=== PATIENT | male | born 1965 | race Caucasian/White ===

== ENCOUNTER 2020-06-04 11:16 | Emergency (ER) | payer SELFPAY ==
--- NOTE | 2020-06-04 11:18 | EDM.PDOC ---
ED HPI GENERAL MEDICAL PROBLEM - General Chief Complaint: Skin Complaint Stated Complaint: SKIN IRRITATION/RASH ON CHEST Time Seen by Provider: 06/04/20 11:18 Source of Information: Reports: Patient History Limitations: Reports: No Limitations - History of Present Illness INITIAL COMMENTS - FREE TEXT/NARRATIVE: 54-year-old male relevant past medical history presents for rash. Patient has noted rash for approximately 4 months. He notes that he has been to the clinic in [place] multiple times and has been given prednisone as well as Decadron which both seem to temporarily relieve the symptoms but then they come back worse. He notes that the rash seems to be spreading initially on his face and then down his arms and onto his torso and back. He notes that he was also trialed on permethrin cream x5 without relief of symptoms. He denies any fevers or other systemic symptoms. The rash is mildly itchy. Somewhat burning in sensation. ED ROS GENERAL - Review of Systems Review Of Systems: Comprehensive ROS is negative, except as noted in HPI. ED EXAM, SKIN/RASH Exam: See Below Exam Limited By: No Limitations General Appearance: Alert, WD/WN, No Apparent Distress Throat/Mouth: Normal Voice, No Airway Compromise Head: Atraumatic, Normocephalic Neck: Normal Inspection Respiratory/Chest: No Respiratory Distress, No Accessory Muscle Use Cardiovascular: Normal Peripheral Pulses Extremities: Normal Inspection Neurological: Alert Psychiatric: Normal Affect, Normal Mood Skin: Warm, Dry, Intact, Other (erythematous raised rash diffuse UE, abdomen, torso, face, blanching) Course - Re-Assessments/Exams Free Text/Narrative Re-Assessment/Exam: 06/04/20 11:42 Patient presents with rash of unclear etiology. This is been going on since February of last year. He has tried steroids on and off which helped for a while but then the rash recurs. I explained to patient that unfortunately in the emergency department we did always come up with a clear diagnosis particularly for rashes. Advised him to follow-up with dermatology and provided information for our local marine steam fitter. Will give Decadron now for symptomatic relief. Return precautions discussed. Departure - Departure Time of Disposition: 11:43 Disposition: Home, Self-Care 01 Condition: Good Clinical Impression: Pruritic rash - Discharge Information Instructions: Rash, Adult Forms: ED Department Discharge Additional Instructions: You need to follow-up with a specialist. Information is provided below for our local marine steam fitter. Donaldo Zabala MD Dermatology [facility] Building [address] [place] [address], [facility] [address] [facility] [id number] The following information is given to patients seen in the emergency department who are being discharged to home. This information is to outline your options for follow-up care. We provide all patients seen in our emergency department with a follow-up referral. The need for follow-up, as well as the timing and circumstances, are variable depending upon the specifics of your emergency department visit. If you don't have a primary care physician on staff, we will provide you with a referral. We always advise you to contact your personal physician following an emergency department visit to inform them of the circumstance of the visit and for follow-up with them and/or the need for any referrals to a consulting specialist. The emergency department will also refer you to a specialist when appropriate. This referral assures that you have the opportunity for follow-up care with a specialist. All of these measure are taken in an effort to provide you with optimal care, which includes your follow-up. Under all circumstances we always encourage you to contact your private physician who remains a resource for coordinating your care. When calling for follow-up care, please make the office aware that this follow-up is from your recent emergency room visit. If for any reason you are refused follow-up, please contact the [facility] Emergency Department at and asked to speak to the emergency department charge nurse. Please follow up with your primary care physician. If you do not have a primary care physician, see below: [facility] [address] [place] [address] [id number] [facility] [address] [place] [address] [facility] [address], [place] [address]
[2020-06-04] MEDS ORDERED: Dexamethasone 10 MG/ML SDV IM ONE (11:43)
== END 2020-06-04 12:08 | disposition home or self-care (01) ==
LOC: MW.ED 11:16
DX: R21 Rash and other nonspecific skin eruption (principal)
CPT/HCPCS: 96372; 99282; J1100